=== PATIENT | female | born 1980 | race Hispanic/Latino ===

== ENCOUNTER 2023-12-07 20:03 | Emergency (ER) | payer OTHER, SELFPAY ==
[2023-12-07 20:05] VITALS: BP 149/90
[2023-12-07 20:23] LABS: % Basophils 0.4 % (0-2); % Eosinophils 1.2 % (0-6); % Immature Granulocytes 0.3 % (0-0.5); % Lymphocytes 32.4 % (20.5-51.1); % Monocytes 5.8 % (1.7-9.3); % Neutrophils 59.9 % (42.2-75.2); Absolute Basophils 0.1 10^3/uL (0-0.2); Absolute Eosinophils 0.2 10^3/uL (0-0.7); Absolute Lymphocytes 4.5 10^3/uL (1.2-3.4); Absolute Monocytes 0.8 10^3/uL (0.1-0.6); Absolute Neutrophils 8.3 10^3/uL (1.4-6.5); Hematocrit 36.1 % (37.0-47.0); Hemoglobin 12.8 g/dL (12.0-16.0); Mean Corp Hgb Conc. 35.5 g/dL (33.0-37.0); Mean Corpuscular Hgb 29.5 pg (27.0-31.0); Mean Corpuscular Volume 83.2 fL (81.0-99.0); Mean Platelet Volume 9.5 fL (7.4-10.4); Nucleated Red Blood Cells % 0 %; Platelet Count 349 10^3/uL (130-400); Red Blood Cell Count 4.34 10^6/uL (4.20-5.40); Red Cell Dist. Width 13.2 % (11.5-14.5); White Blood Cell Count 13.8 10^3/uL (4.8-10.8)
[2023-12-07 20:34] LABS: ALT (SGPT) 24 U/L (0-35); AST (SGOT) 20 U/L (14-36); Albumin 3.7 g/dl (3.5-5.0); Alkaline Phosphatase 93 U/L (38-126); Blood Urea Nitrogen 10 mg/dl (7-17); Calcium 9.1 mg/dl (8.4-10.2); Carbon Dioxide 23 mmol/L (22-30); Chloride 107 mmol/L (98-107); Glucose 99 mg/dl (70-99); Lactic Acid 1.1 mmol/L (0.7-2.0); Potassium 3.8 mmol/L (3.5-5.1); Sodium 137 mmol/L (135-145); Total Bilirubin 0.5 mg/dl (0.2-1.3); Total Protein 7.2 g/dl (6.3-8.2); eGFR > 60.00
[2023-12-07 20:37] LABS: Urine Albumin Trace (Neg - Trace); Urine Bilirubin Negative (Negative); Urine Character Clear (Clear); Urine Color Yellow; Urine Glucose Negative (Negative); Urine Ketone Negative (Negative); Urine Leukocyte Negative (Negative); Urine Nitrite Negative (Negative); Urine Occult Blood Negative (Negative); Urine Urobilinogen Negative (Neg - 1+)
[2023-12-07 20:49] LABS: Lipase 64 U/L (23-300)
--- NOTE | 2023-12-07 22:41 | ED.GENMED ---
History of Present Illness
General
Chief Complaint: Flank Pain
Source: patient
Exam Limitations: none
Time Seen by Provider: 12/07/23 22:15
Travel History
Have you had any contact with someone who has COVID-19?: No
Do you have any symptoms of coronavirus? Fever > 100 degrees, chills, cough, shortness of breath, sore throat, loss of taste or smell, muscle aches, or headache?: No
History of Present Illness
History of Present Illness:
This is a 43 year old female that comes in with c/o right sided back pain. States that this morning when she was in the shower she had right sided pain. States that this pain continued all day when she was at work. States that she tried Tylenol at
11am but nothing helped. Denies any fever, chills, chest pain, SOB, abd pain, nausea, vomiting, diarrhea, headache, dizziness, urinary burning.
Past History
Past History
ED Past Medical History: Arrthythmia (Atrial fibrillation, during her only in 2004, none since), CHF, GERD, NIDDM and Psychiatric (Anxiety)
ED Past Surgical History: Cardiac (pacemaker), (X2), Gynecological (tubal) and Other (Deviated septum)
Patient has exhibited threatening behavior?: No
PSI?: No
Social History
Tobacco: Former smoker
Alcohol: None
Drug: None
Personal:
Living: with family
Employment: Employed (Nurses aide)
Family History
Family History: Other
Review of Systems
Review of Systems
All Other Systems: ROS reviewed and negative except as documented in HPI and ROS
Constitutional: Reports no symptoms; Denies fever or chills
EENT: Reports no symptoms
Respiratory: Reports no symptoms; Denies cough or trouble breathing
Cardiac: Reports no symptoms; Denies chest pain
ABD/GI: Reports no symptoms; Denies abdominal pain, nausea, vomiting or diarrhea
: Reports no symptoms; Denies dysuria, frequency or urgency
Musculoskeletal: Reports back pain (Right sided back pain)
Skin: Reports no symptoms
Neurological: Reports no symptoms; Denies dizzy or headache
Psychiatric: Reports no symptoms
Phy Exam
General Physical Exam
General Presentation: no apparent distress
General age: appears stated age
General Skin: warm and dry
General Habitus: obese
General Mental: alert
General Hydration: appears well hydrated
ENT Exam
ENT Exam: TM's normal, pharynx normal and neck supple
Eye Exam
Eye Exam: EOMI
Cardiovascular Exam
Cardiovascular Exam: regular rate/rhythm, no edema and normal peripheral pulses
Pulmonary Exam
Pulmonary Exam: lungs clear, no respiratory distress, no rales, chest non tender, no crackles, no rhonchi, no wheezing and no cough
Gastrointestinal Exam
Gastrointestinal Exam: normal bowel sounds, non tender, soft, no organomegaly, no pulsatile mass, non distended, no cva tenderness and other (Obese)
Musculoskeletal Exam
Musculoskeletal Exam: full ROM and no edema
Skin Exam
Skin Exam: normal color, warm/dry, no rash and no petechia
Psychiatric Exam
Psychiatric Exam: normal mood/affect
Course
Orders/Labs/Results
Orders:
Orders
12/07/23 20:12
CBC/With Diff [Complete Blood Count/With Diff] Urgent
CMP [Comprehensive Metabolic Panel] Urgent
HCG, Serum Qualitative Screen Urgent
Comment: ADD ON
Lactate Level [Lactic Acid] Urgent
Lipase Urgent
12/07/23 20:24
Urinalysis Reflex To Culture Urgent
Date Specimen was Collected: 12/07/23
Time Specimen was Collected: 20:08
12/07/23 22:41
Add On- LAB Urgent
Tests Added?: HCG
12/07/23 23:08
Acetaminophen [Tylenol] 1,000 mg PO NOW STA
12/08/23 00:15
CT Abd/pel Without Iv Or Oral Urgent
Reason For Exam: Right sided back pain/flank
Abnormal Lab Results
12/07/23
20:12
WBC 13.8 H 10^3/uL
(4.8-10.8)
Hct 36.1 L %
(37.0-47.0)
Absolute Neuts (auto) 8.3 H 10^3/uL
(1.4-6.5)
Absolute Lymphs (auto) 4.5 H 10^3/uL
(1.2-3.4)
Absolute Monos (auto) 0.8 H 10^3/uL
(0.1-0.6)
Creatinine 0.5 L mg/dL
(0.6-1.0)
12/07/23 20:12
12/07/23 20:12
Leukocytosis, Lactic acid normal at 1.1, Lipase normal at 64, Urine negative for infection but blood noted, HCG negative
Vital Signs
Initial and Last Documented VS:
Initial Vital Signs
Temp Pulse Resp BP Pulse Ox
98.3 F 89 18 149/90 98
12/07/23 20:05 12/07/23 20:05 12/07/23 20:05 12/07/23 20:05 12/07/23 20:05
Last Documented Vital Signs
Temp Pulse Resp BP Pulse Ox
98.3 F 89 18 149/90 98
12/07/23 20:05 12/07/23 20:05 12/07/23 20:05 12/07/23 20:05 12/07/23 20:05
MDM/Problems Addressed
Differential Diagnosis Includes:
Renal calculus, Back pain
MDM/Problems Addressed:
This is a 43 year old female that comes in with c/o right sided back pain. States that this pain started this morning and has continued all day.
Will get labs and CT scan.
Back over to see patient. Explained that she has stones in both kidneys but they are not in the ureter. Patient encouraged to increased her water intake to 8-8oz glasses daily. Tylenol for pain. Follow up with the family doctor. Return with any
concerns.
Chronic conditions affecting care:
NA
Acute Exacerbation and/or Progression of Chronic Illness:
NA
*Radiology
Radiology exam reviewed: radiology read reviewed (CT night hawk- Bilateral renal calculi. NO evidence of obstructing ureteral calculus. Noninflamed appendix. Additional findings: Partially imaged pacemaker, DJD)
*Pulse Oximetry
Patient hypoxic: no
*EKG
Interpreted by ED Provider?: NA
Rate: EKG- N/A
*Furniture Painter Interpretation
Rate: Furniture Painter- N/A
*Critical Care Note
Total Time (30-74mins, 75-104mins- exclusive of procedures): Not Applicable
ED Attending Note
-
Portions of this chart may have been created with voice recognition software.� Occasional wrong word or��sound alike� substitutions may have occurred due to the inherent limitations of voice recognition software.
Discharge Plan
Departure
Patient Disposition: Home (Routine Discharge)
Date of Disposition: 12/08/23
Time of Disposition: 00:54
Patient with high blood pressure during this ER visit?: Yes
Condition: Good
Covid-19: Not Applicable
Discharge Problem:
Bilateral kidney stones
Instructions: Kidney Stones (DC), BLOOD PRESSURE
Prescriptions:
No Action
zolpidem 5 MG tablet
5 mg PO HS
albuterol sulfate [Proventil HFA] 90 MCG/PUFF HFA aerosol inhaler
2 puff inhalation Q4HPRN PRN (Reason: shortness of breath, cough) Qty: 1 0RF
ergocalciferol (vitamin D2) [Drisdol] 1,250 mcg (50,000 unit) Capsule
1,250 mcg PO TU
acetaminophen 325 mg Tablet
650 mg PO Q4HPRN PRN (Reason: MILD PAIN) Qty: 30 0RF
diltiazem HCl 240 mg Capsule,Extended Release 24hr
240 mg PO DAILY Qty: 30 0RF
Eliquis 5 mg Tablet
5 mg PO BID Qty: 30 0RF
furosemide [Lasix] 40 mg tablet
40 mg PO DAILY PRN (Reason: weight gain) Qty: 30 0RF
potassium chloride 20 mEq tablet extended release
20 meq PO DAILY PRN (Reason: when you take lasix) Qty: 30 0RF
metformin 500 mg tablet
500 mg PO BID@0800,1700
omeprazole 40 mg Capsule,Delayed Release(Dr/Ec)
40 mg PO DAILY PRN (Reason: reflux)
alprazolam 0.5 mg tablet
0.5 mg PO HSPRN PRN (Reason: anxiety)
olopatadine 0.1 % drops
1 drp BOTH EYES BIDPRN PRN (Reason: allergies)
ibuprofen [Advil] 200 mg Tablet
800 mg PO BIDPRN PRN (Reason: mild pain)
medroxyprogesterone 150 mg/mL syringe
15 mg IM .Q13 WEEKS
magnesium oxide 400 mg magnesium Tablet
400 mg PO DAILY
insulin glargine [Lantus Solostar U-100 Insulin] 100 unit/mL (3 mL) insulin pen
10 unit SC DAILY PRN (Reason: bs>130)
doxycycline hyclate 100 mg Capsule
100 mg PO Q12 Qty: 14 0RF
metronidazole 500 mg tablet
500 mg PO Q8H 5 Days Qty: 15 0RF
Referrals:
Sakina Peraza CRNP [Family Provider] - Call in 1-3 days for appt
Activity Restrictions/Additional Instructions:
As discussed, your blood work shows that your WBC are slightly elevated. Your CT shows that you have stones in the kidneys but not in the ureters. Please increase your water intake to 8-8oz glasses daily. Your urine is negative for any infection.
Follow up with the family doctor for recheck as needed. You may use Tylenol as needed for any pain. IF YOU HAVE FEVER, VOMITING, INCREASED OR CHANGING PAIN, OR YOU HAVE ANY OTHER CONCERNS PLEASE RETURN TO THE EMERGENCY ROOM.
Interventions
Interventions:
DU-Soryht-Mogpfwhopn Assessment Last Done: 12/07/23 23:25
Discharge Date and Time
Print Language: CAMBODIAN
[2023-12-07 23:08] LABS: HCG, Serum Qualitative Screen Negative
[2023-12-07] MEDS: TYLENOL 1000 MG PO (23:19)
== END 2023-12-08 01:07 | disposition home or self-care (01) ==
LOC: EMR 20:03
PROVIDERS: Emergency Medicine; EMERGENCY PHYSICIAN Student in an Organized Health Care Education/Training Program; FAMILY PHYSICIAN Nurse Practitioner Family
DX: N20.0 Calculus of kidney (principal); Z87.891 Personal history of nicotine dependence
CPT/HCPCS: 99284; 74176; 80053; 81003; 83605; 83690; 84703; 85025

== ENCOUNTER 2024-04-25 00:04 | Emergency (ER) | payer OTHER, SELFPAY ==
[2024-04-25 00:08] VITALS: BP 128/73
[2024-04-25 00:26] LABS: Urine Albumin Negative (Neg - Trace); Urine Bilirubin Negative (Negative); Urine Character Clear (Clear); Urine Color Yellow; Urine Glucose Negative (Negative); Urine Ketone Negative (Negative); Urine Leukocyte Trace (Negative); Urine Nitrite Negative (Negative); Urine Occult Blood Negative (Negative); Urine Specific Gravity 1.015 (<1.030); Urine Urobilinogen Negative (Neg - 1+); Urine pH 6.5 (5.0-9.0)
[2024-04-25 01:09] LABS: Urine Squamous Cell >30 /LPF (Few)
[2024-04-25 01:11] LABS: Urine Amorphous Seen; Urine Red Blood Cell 0-2 /HPF (0-2)
[2024-04-25 01:12] LABS: Urine Bacteria Moderate (Negative)
--- NOTE | 2024-04-25 02:36 | ED.GENMED ---
History of Present Illness
General
Chief Complaint: Flank Pain
Source: patient, records and previous radiology exam
Exam Limitations: none
Time Seen by Provider: 04/25/24 02:19
Nursing documentation reviewed up to this point in time: agreed with except (Patient denies anterior abdominal pain to me)
History of Present Illness
History of Present Illness:
44-year-old female A-fib on Eliquis, prior kidney stone presents with right flank pain, different than her prior kidney stone worse with movement better with rest mild nausea without vomiting took some ibuprofen PCP says she should not take it
because of her blood thinner then had some Tylenol no heavy lifting no shortness of breath patient denies dysuria frequency or urgency
Past History
Past History
ED Past Medical History: Arrthythmia (Atrial fibrillation, during her only in 2004, none since), CHF, GERD, NIDDM and Psychiatric (Anxiety)
ED Past Surgical History: Cardiac (pacemaker), (X2), Gynecological (tubal) and Other (Deviated septum)
Patient has exhibited threatening behavior?: No
PSI?: No
Social History
Tobacco: Former smoker
Alcohol: None
Drug: None
Personal:
Living: with family
Employment: Employed (Nurses aide)
Family History
Family History: Other
Review of Systems
Review of Systems
All Other Systems: Not applicable
Constitutional: Reports fever (Low-grade)
EENT: Reports no symptoms
Respiratory: Reports no symptoms; Denies cough or trouble breathing
Cardiac: Reports no symptoms
ABD/GI: Reports abdominal pain (Correction from the nurses note) and nausea
Phy Exam
Physical Exam
Physical Exam:
Physical Exam
General: no apparent distress, not acutely ill
Neck: No jaundice
Heart: Rate
Lungs: no acute respiratory distress. clear bilaterally
Abdomen: Soft nontender no CVA tenderness reproducible tenderness with no rash in the right paraspinal tenderness mid thoracic spine
Neuro: alert and oriented. no focal neurological deficits
Skin: no rash
Psychiatric: well kept. interactive and cooperative
Extremities: no edema.
Course
Orders/Labs/Results
Orders:
Orders
04/25/24 00:14
HCG, Urine Qualitative Screen Urgent
Date Specimen was Collected: 04/25/24
Time Specimen was Collected: 00:14
Comment: ADDED
Urinalysis Reflex To Culture Urgent
Date Specimen was Collected: 04/25/24
Time Specimen was Collected: 00:14
Urine Microscopic Reflex Cult Urgent
Urine Culture Urgent
LUCIANO Source: U
Specimen Description:
Date Specimen was Collected: 04/25/24
Time Specimen was Collected: 00:14
04/25/24 02:20
Add On- LAB Urgent
Tests Added?: urine hcg, urine culture
04/25/24 02:35
Oxycodone/Acetaminophen [Percocet 5/325] 1 tablet PO NOW STA
Abnormal Lab Results
04/25/24
00:14
Leukocyte Esterase Rfl Trace A
(Negative)
Urine Bacteria (Reflex) Moderate A
(Negative)
Vital Signs
Initial and Last Documented VS:
Initial Vital Signs
Temp Pulse Resp BP Pulse Ox
98.3 F 86 21 128/73 98
04/25/24 00:08 04/25/24 00:08 04/25/24 00:08 04/25/24 00:08 04/25/24 00:08
Last Documented Vital Signs
Temp Pulse Resp BP Pulse Ox
98.3 F 86 21 128/73 98
04/25/24 00:08 04/25/24 00:08 04/25/24 00:08 04/25/24 00:08 04/25/24 00:08
MDM/Problems Addressed
Differential Diagnosis Includes:
Strain strain, UTI, renal colic pleurisy doubt PE she is anticoagulated
MDM/Problems Addressed:
Right flank pain
Chronic conditions affecting care:
A-fib kidney stone diabetes
Acute Exacerbation and/or Progression of Chronic Illness:
A-fib kidney stone diet
*Pulse Oximetry
Patient hypoxic: no
*Critical Care Note
Total Time (30-74mins, 75-104mins- exclusive of procedures): Not Applicable
Data Reviewed
Source: patient
Update Note
Update Note:
Patient is nontoxic, urinalysis noted looks like contaminated specimen, symptoms appear positional, different than her prior kidney stone, no dysuria or frequency,
Will hold on imaging she has had numerous CAT scans previously, she states this is different than her prior ureteral stones, patient clearly instructed to return to the ER if worsening symptoms
ED Attending Note
-
Portions of this chart may have been created with voice recognition software.� Occasional wrong word or��sound alike� substitutions may have occurred due to the inherent limitations of voice recognition software.
Discharge Plan
Departure
Patient Disposition: Home (Routine Discharge)
Date of Disposition: 04/25/24
Time of Disposition: 02:39
Patient with high blood pressure during this ER visit?: No
Condition: Good
Covid-19: Not Applicable
Discharge Problem:
Back pain
Instructions: Flank Pain (DC)
Prescriptions:
No Action
zolpidem 5 MG tablet
5 mg PO HS
albuterol sulfate [Proventil HFA] 90 MCG/PUFF HFA aerosol inhaler
2 puff inhalation Q4HPRN PRN (Reason: shortness of breath, cough) Qty: 1 0RF
ergocalciferol (vitamin D2) [Drisdol] 1,250 mcg (50,000 unit) Capsule
1,250 mcg PO TU
acetaminophen 325 mg Tablet
650 mg PO Q4HPRN PRN (Reason: MILD PAIN) Qty: 30 0RF
diltiazem HCl 240 mg Capsule,Extended Release 24hr
240 mg PO DAILY Qty: 30 0RF
Eliquis 5 mg Tablet
5 mg PO BID Qty: 30 0RF
furosemide [Lasix] 40 mg tablet
40 mg PO DAILY PRN (Reason: weight gain) Qty: 30 0RF
potassium chloride 20 mEq tablet extended release
20 meq PO DAILY PRN (Reason: when you take lasix) Qty: 30 0RF
metformin 500 mg tablet
500 mg PO BID@0800,1700
omeprazole 40 mg Capsule,Delayed Release(Dr/Ec)
40 mg PO DAILY PRN (Reason: reflux)
alprazolam 0.5 mg tablet
0.5 mg PO HSPRN PRN (Reason: anxiety)
olopatadine 0.1 % drops
1 drp BOTH EYES BIDPRN PRN (Reason: allergies)
ibuprofen [Advil] 200 mg Tablet
800 mg PO BIDPRN PRN (Reason: mild pain)
medroxyprogesterone 150 mg/mL syringe
15 mg IM .Q13 WEEKS
magnesium oxide 400 mg magnesium Tablet
400 mg PO DAILY
insulin glargine [Lantus Solostar U-100 Insulin] 100 unit/mL (3 mL) insulin pen
10 unit SC DAILY PRN (Reason: bs>130)
doxycycline hyclate 100 mg Capsule
100 mg PO Q12 Qty: 14 0RF
metronidazole 500 mg tablet
500 mg PO Q8H 5 Days Qty: 15 0RF
Activity Restrictions/Additional Instructions:
Drink plenty of fluids, Tylenol every 4-6 hours as needed for pain
Return to the ER if fevers, worsening flank pain, nausea vomiting or any other concerns
Interventions
Interventions:
*Risk Screen - Suicide Last Done: 04/25/24 00:08
*General Assessment Last Done: 04/25/24 02:09
*Neglect/Abuse Screening Last Done: 04/25/24 02:09
ED- Fall Risk Assessment Last Done: 04/25/24 02:09
*ED COVID-19 Vaccine History Last Done: 04/25/24 02:09
GU-Utbxzw-Djeysznjvy Assessment Last Done: 04/25/24 02:09
ED-Female Genitourinary Assessment Last Done: 04/25/24 02:09
Discharge Date and Time
Print Language: KISWAHILI
[2024-04-25 03:09] LABS: HCG, Urine Qualitative Screen Negative
[2024-04-25] MEDS: PERCOCET 5/325 1 TABLET PO (03:13)
[2024-04-25 03:20] VITALS: BP 138/82
== END 2024-04-25 03:30 | disposition home or self-care (01) ==
LOC: EMR 00:04
PROVIDERS: EMERGENCY PHYSICIAN Emergency Medicine; FAMILY PHYSICIAN Nurse Practitioner Family
DX: M54.9 Dorsalgia, unspecified (principal); I48.91 Unspecified atrial fibrillation; E11.9 Type 2 diabetes mellitus without complications; F41.9 Anxiety disorder, unspecified; I50.9 Heart failure, unspecified; K21.9 Gastro-esophageal reflux disease without esophagitis; Z79.01 Long term (current) use of anticoagulants; Z87.442 Personal history of urinary calculi; Z87.891 Personal history of nicotine dependence; Z95.0 Presence of cardiac pacemaker
CPT/HCPCS: 99282; 81003; 81015; 81025; 87086

== ENCOUNTER 2024-07-24 03:51 | Emergency (ER) | payer OTHER, SELFPAY ==
[2024-07-24 03:52] VITALS: BP 169/79
[2024-07-24 03:58] VITALS: BMI 45.3
[2024-07-24 04:01] VITALS: BP 145/73
[2024-07-24 04:10] LABS: COVID-19 Antigen Positive (Negative)
--- NOTE | 2024-07-24 05:33 | ED.GENMED ---
History of Present Illness
General
Chief Complaint: Cold/Flu/URI Symptoms
Source: patient
Time Seen by Provider: 07/24/24 05:03
History of Present Illness
History of Present Illness:
Pleasant 44-year-old female presents to the emergency department with bodyaches, sore throat and 'feeling sick '. She states that her symptoms began around Wednesday afternoon. 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
outbreak recently. Patient has had COVID in the past. She has not fully immunized. She states that she had bad reaction to the last immunization. Patient's parents called 911 because they were concerned about her body aches and pains. Patient
denies chest pain or shortness of breath. Does report some fever.
Past History
Past History
ED Past Medical History: Arrthythmia (Atrial fibrillation, during her only in 2004, none since), CHF, GERD, NIDDM and Psychiatric (Anxiety)
ED Past Surgical History: Cardiac (pacemaker), (X2), Gynecological (tubal) and Other (Deviated septum)
Patient has exhibited threatening behavior?: No
PSI?: No
Social History
Tobacco: Former smoker
Alcohol: None
Drug: None
Personal:
Living: with family
Employment: Employed (Nurses aide)
Family History
Family History: Other
Review of Systems
Review of Systems
Allergies reviewed?: Yes
All Other Systems: ROS reviewed and negative except as documented in HPI and ROS
Constitutional: Reports fever, fatigue and sleep disturbance
EENT: Reports no symptoms
Respiratory: Reports cough
Cardiac: Reports no symptoms
ABD/GI: Reports no symptoms
: Reports no symptoms
Musculoskeletal: Reports no symptoms
Skin: Reports no symptoms
Neurological: Reports no symptoms
Endocrine: Reports no symptoms
Hematologic/Lymphatic: Reports no symptoms
Psychiatric: Reports anxiety
Phy Exam
Physical Exam
Physical Exam:
Physical Exam
Vital signs and allergy list reviewed and agreed with.
GENERAL: Alert , in minimal to no apparent distress, obese
EYE: pupils equal, EOMI, anicteric
NECK: Supple, no significant adenopathy. No masses. Trachea midline
ENT: Oropharynx is clear, mmm.
CARDIAC: Regular rate and rhythm . No M/R/G
LUNGS: Clear breath sounds bilaterally, no acute respiratory distress, no wheezes/rales/rhonchi
ABDOMEN: Soft, without focal tenderness, no r/g, no cvat. Normal BSx4q
NEUROLOGICAL: Alert and oriented, no focal neuro deficits
SKIN: Warm and dry, skin intact.
MUSCULOSKELETAL: No edema, well perfused. Moves all 4 extremities
PSYCH: Normal and appropriate interaction.
Course
Orders/Labs/Results
Orders:
Orders
07/24/24 03:58
COVID-19 Antigen Urgent
Source: Nasal Swab
Influenza A+B Rapid Molecular Urgent
LUCIANO Source: Nasal Swab
Specimen Description:
07/24/24 05:31
CR Chest - 2 Views Urgent
Comment:
Reason For Exam: covid + cough
Abnormal Lab Results
07/24/24
03:58
SARS-CoV-2 Antigen Positive A
(Negative)
Vital Signs
Initial and Last Documented VS:
Initial Vital Signs
Temp Pulse Resp BP Pulse Ox
100.1 F 108 20 169/79 97
07/24/24 03:52 07/24/24 03:52 07/24/24 03:52 07/24/24 03:52 07/24/24 03:52
Last Documented Vital Signs
Temp Pulse Resp BP Pulse Ox
98.8 F 99 18 145/73 96
07/24/24 05:20 07/24/24 05:53 07/24/24 05:53 07/24/24 04:01 07/24/24 05:53
*Critical Care Note
Total Time (30-74mins, 75-104mins- exclusive of procedures): Not Applicable
ED Attending Note
-
Portions of this chart may have been created with voice recognition software.� Occasional wrong word or��sound alike� substitutions may have occurred due to the inherent limitations of voice recognition software.
Discharge Plan
Departure
Patient Disposition: Home (Routine Discharge)
Date of Disposition: 07/24/24
Time of Disposition: 06:04
Patient with high blood pressure during this ER visit?: Yes
Condition: Good
Discharge Problem:
COVID-19
Instructions: Fever, Adult (DC), Viral Syndrome (DC), Coronavirus Home Quarantine, BLOOD PRESSURE
Prescriptions:
No Action
zolpidem 5 MG tablet
5 mg PO HS
ergocalciferol (vitamin D2) [Drisdol] 1,250 mcg (50,000 unit) Capsule
1,250 mcg PO TU
diltiazem HCl 240 mg Capsule,Extended Release 24hr
240 mg PO DAILY Qty: 30 0RF
Eliquis 5 mg Tablet
5 mg PO BID Qty: 30 0RF
furosemide [Lasix] 40 mg tablet
40 mg PO DAILY PRN (Reason: weight gain) Qty: 30 0RF
potassium chloride 20 mEq tablet extended release
20 meq PO DAILY PRN (Reason: when you take lasix) Qty: 30 0RF
metformin 500 mg tablet
500 mg PO BID@0800,1700
omeprazole 40 mg Capsule,Delayed Release(Dr/Ec)
40 mg PO DAILY PRN (Reason: reflux)
alprazolam 0.5 mg tablet
0.5 mg PO HSPRN PRN (Reason: anxiety)
olopatadine 0.1 % drops
1 drp BOTH EYES BIDPRN PRN (Reason: allergies)
medroxyprogesterone 150 mg/mL syringe
15 mg IM .Q13 WEEKS
magnesium oxide 400 mg magnesium Tablet
400 mg PO DAILY
insulin glargine [Lantus Solostar U-100 Insulin] 100 unit/mL (3 mL) insulin pen
10 unit SC DAILY PRN (Reason: bs>130)
Referrals:
Sakina Peraza CRNP [Family Provider] -
Stand Alone Forms: Return to Work
Activity Restrictions/Additional Instructions:
It was a pleasure meeting you and taking part in your care. We hope for your continued healing and wellness.
Please read discharge instructions in their entirety. However, they are for general education and may not describe your exact diagnosis at discharge. Information on your ER visit and medical conditions were discussed with you along with appropriate
follow up information...
If indicated, please take your medications as instructed and indicated on discharge paperwork.
Please schedule a follow up appointment as directed. Call to schedule an appointment
Please return to the emergency department with ANY change in, persisting, or worsening of symptoms. If any of your symptoms do not improve, or persist, or become more severe within 6-12 hours, please return to the emergency department for further
care.
Please return to the emergency department if you develop a headache, neck pain/stiffness, fever greater than 100.4F, chest pain, shortness of breath, persistent nausea, vomiting, slurred speech, difficulty walking, numbness/tingling, weakness, signs
of infection or any other symptoms that are worrisome to you.
If you have any questions or concerns please do not hesitate to call the Hospital at or E-mail me directly at [email or web address]
Interventions
Interventions:
*Risk Screen - Suicide Last Done: 07/24/24 03:52
*General Assessment Last Done: 07/24/24 03:52
*Neglect/Abuse Screening Last Done: 07/24/24 03:52
*ED COVID-19 Vaccine History Last Done: 07/24/24 03:58
*Nursing Disposition Last Done: 07/24/24 06:25
ED- Pulmonary Assessment Last Done: 07/24/24 04:07
Discharge Date and Time
Discharge Date/Time: 07/24/24 06:25
Print Language: FRENCH
== END 2024-07-24 06:25 | disposition home or self-care (01) ==
LOC: EMR 03:51
PROVIDERS: EMERGENCY PHYSICIAN Student in an Organized Health Care Education/Training Program; FAMILY PHYSICIAN Nurse Practitioner Family
DX: U07.1 COVID-19 (principal); I48.91 Unspecified atrial fibrillation; I50.9 Heart failure, unspecified; E11.9 Type 2 diabetes mellitus without complications; F41.9 Anxiety disorder, unspecified; K21.9 Gastro-esophageal reflux disease without esophagitis; Z87.891 Personal history of nicotine dependence; Z95.0 Presence of cardiac pacemaker
CPT/HCPCS: 99283; 71046; 87502; 87811

== ENCOUNTER 2025-05-07 04:59 | Emergency (ER) | payer OTHER, SELFPAY ==
[2025-05-07 05:08] VITALS: BP 193/100
--- NOTE | 2025-05-07 07:19 | ED.GENMED ---
History of Present Illness
General
Chief Complaint: Flank Pain
Source: patient
Time Seen by Provider: 05/07/25 06:56
History of Present Illness
History of Present Illness:
45-year-old female with past medical history of atrial fibrillation, CHF, insulin-dependent diabetes presenting to the ED for evaluation of a sudden onset left flank pain that developed around 2 AM, awoke patient from sleep accompanied with nausea
but no vomiting. Symptoms are described to be waxing and waning in nature, currently more mild but not resolved. Patient notes that she started with her menstrual period yesterday which had some increased cramping and a heavier flow but she notes
that the flow is not atypical for her. No history of ovarian cysts. She does note a history of kidney stones but states that this pain feels a little bit different because she is not having any discomfort with urination. No fevers, chills, rigors
or any other concerns presently. Patient did not take anything for her symptoms prior to arrival. She does note she is on Eliquis due to her history of A-fib.
Past History
Past History
ED Past Medical History: Arrthythmia (Atrial fibrillation, during her only in 2004, none since), CHF, GERD, NIDDM and Psychiatric (Anxiety)
ED Past Surgical History: Cardiac (pacemaker), (X2), Gynecological (tubal) and Other (Deviated septum)
Patient has exhibited threatening behavior?: No
PSI?: No
Social History
Tobacco: Former smoker
Alcohol: None
Drug: None
Personal:
Living: with family
Employment: Employed (Nurses aide)
Family History
Family History: Other
Review of Systems
Review of Systems
All Other Systems: ROS reviewed and negative except as documented in HPI and ROS
Phy Exam
Physical Exam
Physical Exam:
GENERAL: Alert , in no apparent distress but does appear uncomfortable, overweight
HEAD: Normocephalic atraumatic
EYE: clear conjunctiva
NECK: Supple
ENT: o/p clr, mmm.
CARDIAC: Regular rate and rhythm .
LUNGS: Clear breath sounds bilaterally, no acute respiratory distress, no wheezes/rales/rhonchi
ABDOMEN: Soft, without focal tenderness, no r/g, left CVAT
NEUROLOGICAL: Alert and oriented
SKIN: Warm and dry, skin intact.
MUSCULOSKELETAL: well perfused.
PSYCH: Normal and appropriate interaction.
Scores
Heart Failure Risk
Heart Failure Risk Score: Not Applicable
Heart Score for Chest Pain Patients
STEMI patient?: Not applicable
Withdrawal Assessment of Alcohol
Withdrawal Assessment Completed?: Not applicable
Course
Orders/Labs/Results
Orders:
Orders
05/07/25 07:09
0.9% Sodium Chloride 1000 ml [Nss] 1,000 ml IV BOLUS
Morphine Sulfate 4 mg IV NOW STA
Ondansetron Injectable [Zofran] 4 mg IV NOW STA
05/07/25 07:10
CT Abd/pel Without Iv Or Oral Urgent
Comment:
Reason For Exam: sudden left flank pain
Test Result ONCE
05/07/25 07:43
Complete Blood Count/With Diff Urgent
Comprehensive Metabolic Panel Urgent
HCG, Serum Qualitative Screen Urgent
Lipase Urgent
05/07/25 08:04
Urinalysis Reflex To Culture Urgent
Date Specimen was Collected: 05/07/25
Time Specimen was Collected: 08:02
Urine Microscopic Reflex Cult Urgent
Urine Culture Urgent
LUCIANO Source: U
Specimen Description:
Date Specimen was Collected: 05/07/25
Time Specimen was Collected: 08:02
05/07/25 10:01
CefTRIAXone [Rocephin] 1,000 mg IV NOW STA
05/07/25 10:07
Morphine Sulfate 2 mg IV NOW STA
Abnormal Lab Results
05/07/25 05/07/25
07:43 08:04
WBC 14.2 H 10^3/uL
(4.8-10.8)
Abs Immat Gran (auto) 0.1 H 10^3/uL
(0-0.05)
Absolute Neuts (auto) 10.7 H 10^3/uL
(1.4-6.5)
Absolute Monos (auto) 0.9 H 10^3/uL
(0.1-0.6)
Neutrophils % 75.4 H %
(42.2-75.2)
Lymphocytes % 16.6 L %
(20.5-51.1)
Creatinine 0.4 L mg/dL
(0.6-1.0)
Ur Occult Blood Reflex 4+ A
(Negative)
Urine Nitrite (Reflex) Positive A
(Negative)
Leukocyte Esterase Rfl 2+ A
(Negative)
Urine RBC >100 A /HPF
(0-2)
Urine Bacteria (Reflex) Few A
(Negative)
Urine Albumin (Reflex) 3+ A
(Neg - Trace)
05/07/25 07:43
05/07/25 07:43
Vital Signs
Initial and Last Documented VS:
Initial Vital Signs
Temp Pulse Resp BP Pulse Ox
97.7 F 78 20 193/100 98
05/07/25 05:08 05/07/25 05:08 05/07/25 05:08 05/07/25 05:08 05/07/25 05:08
Last Documented Vital Signs
Temp Pulse Resp BP Pulse Ox
97.7 F 98 16 138/81 98
05/07/25 05:08 05/07/25 10:00 05/07/25 10:00 05/07/25 10:00 05/07/25 10:00
MDM/Problems Addressed
Differential Diagnosis Includes:
Renal/Ureteral Colic
Ovarian cyst/Ovarian torsion
Muscular back pain
Dissection
UTI/Pyelo
Less concern for atypical ACS
Diverticulitis/colitis
MDM/Problems Addressed:
45-year-old female presenting to the ER for evaluation of sudden left flank pain that developed around 2 AM, waxing and waning but overall a constant discomfort. Did not take anything for the pain prior to arrival. No fevers. In no acute distress
but does appear uncomfortable. Will treat pain with morphine, nausea with Zofran and IV fluids. Unfortunately unable to treat with Toradol given patient is already anticoagulated on Eliquis. I do suspect renal/ureteral colic is the most likely
diagnosis given the description of the pain as well as the location. Will have low threshold to order ultrasound to evaluate for possible ovarian pathology if CT is unremarkable.
*Radiology
Radiology exam reviewed: radiology read reviewed
*Pulse Oximetry
SaO2: 98
Oxygen Mode of Delivery: Room air
Patient hypoxic: no
*Critical Care Note
Total Time (30-74mins, 75-104mins- exclusive of procedures): Not Applicable
Patient Management
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
Escalation/DeEscalation of care consider admission/obs:
Patient CT scan shows hydronephrosis but a likely recently passed kidney stone that is still within the posterior portion of the bladder. Given her leukocytosis and nitrite positive urine I did discuss the case with urology who is in agreement with
plan for 1 dose of IV Rocephin here and oral cefuroxime tablet for home. Will treat pain with continued p.o. Tylenol and Flomax. Patient will follow-up with urology as an outpatient. Aware of return precautions to the ER.
ED Attending Note
-
Portions of this chart may have been created with voice recognition software.� Occasional wrong word or��sound alike� substitutions may have occurred due to the inherent limitations of voice recognition software.
Discharge Plan
Departure
Patient Disposition: Home (Routine Discharge)
Date of Disposition: 05/07/25
Time of Disposition: 10:28
Patient with high blood pressure during this ER visit?: Yes
Discharge Problem:
Ureteral colic, UTI (urinary tract infection)
Instructions: Kidney Stones (DC)
Prescriptions:
New
cefuroxime axetil 500 mg tablet
500 mg PO BID 7 Days Qty: 14 0RF
ondansetron 4 mg tablet,disintegrating
4 mg PO TIDPRN PRN (Reason: nausea/vomiting) Qty: 10 0RF
tamsulosin [Flomax] 0.4 mg capsule
0.4 mg PO DAILY Qty: 10 0RF
No Action
zolpidem 5 MG tablet
5 mg PO HS
ergocalciferol (vitamin D2) [Drisdol] 1,250 mcg (50,000 unit) Capsule
1,250 mcg PO TU
diltiazem HCl 240 mg Capsule,Extended Release 24hr
240 mg PO DAILY Qty: 30 0RF
Eliquis 5 mg Tablet
5 mg PO BID Qty: 30 0RF
furosemide [Lasix] 40 mg tablet
40 mg PO DAILY PRN (Reason: weight gain) Qty: 30 0RF
potassium chloride 20 mEq tablet extended release
20 meq PO DAILY PRN (Reason: when you take lasix) Qty: 30 0RF
metformin 500 mg tablet
500 mg PO BID@0800,1700
omeprazole 40 mg Capsule,Delayed Release(Dr/Ec)
40 mg PO DAILY PRN (Reason: reflux)
alprazolam 0.5 mg tablet
0.5 mg PO HSPRN PRN (Reason: anxiety)
olopatadine 0.1 % drops
1 drp BOTH EYES BIDPRN PRN (Reason: allergies)
medroxyprogesterone 150 mg/mL syringe
15 mg IM .Q13 WEEKS
magnesium oxide 400 mg magnesium Tablet
400 mg PO DAILY
insulin glargine [Lantus Solostar U-100 Insulin] 100 unit/mL (3 mL) insulin pen
10 unit SC DAILY PRN (Reason: bs>130)
Referrals:
Ulices Echevarria MD [Active, Urology]
Sakina Peraza CRNP [Family Provider, Family Practice]
Stand Alone Forms: Return to Work
Interventions
Interventions:
*Risk Screen - Suicide Last Done: 05/07/25 05:08
*General Assessment Last Done: 05/07/25 07:58
*Neglect/Abuse Screening Last Done: 05/07/25 05:08
*ED- Fall Risk Assessment Last Done: 05/07/25 07:58
*ED COVID-19 Vaccine History Last Done: 05/07/25 07:58
*ED Influenza Vaccine History Last Done: 05/07/25 07:58
QA-Xjreff-Xyjamhokgf Assessment Last Done: 05/07/25 07:58
ED-Female Genitourinary Assessment Last Done: 05/07/25 07:58
Discharge Date and Time
Print Language: CONGOLESE
[2025-05-07] MEDS: NSS 1000 IV (07:44)
[2025-05-07] MEDS: ZOFRAN 4 MG IV (07:49)
[2025-05-07] MEDS: MORPHINE SULFATE 4 MG IV (07:50)
[2025-05-07 07:58] VITALS: BP 146/91; BMI 42.9
[2025-05-07 08:00] VITALS: BP 144/95
[2025-05-07 08:03] LABS: Hematocrit 37.8 % (37.0-47.0); Hemoglobin 13.0 g/dL (12.0-16.0); Mean Corp Hgb Conc. 34.4 g/dL (33.0-37.0); Mean Corpuscular Volume 85.1 fL (81.0-99.0); Nucleated Red Blood Cells % 0 %; Platelet Count 323 10^3/uL (130-400); Red Cell Dist. Width 12.8 % (11.5-14.5)
[2025-05-07 08:14] LABS: Urine Character Cloudy (Clear)
[2025-05-07 08:18] LABS: HCG, Serum Qualitative Screen Negative
[2025-05-07 08:22] LABS: ALT (SGPT) 26 U/L (0-35); AST (SGOT) 19 U/L (14-36); Albumin 4.3 g/dl (3.5-5.0); Alkaline Phosphatase 74 U/L (38-126); Blood Urea Nitrogen 10 mg/dl (7-17); Calcium 9.7 mg/dl (8.4-10.2); Carbon Dioxide 24 mmol/L (22-30); Chloride 107 mmol/L (98-107); Estimated Creatinine Clearance > 125 ml/min; Glucose 97 mg/dl (70-99); Lipase 46 U/L (23-300); Potassium 3.7 mmol/L (3.5-5.1); Sodium 137 mmol/L (135-145); Total Protein 8.0 g/dl (6.3-8.2); eGFR > 60.00
[2025-05-07 08:26] LABS: Urine Red Blood Cell >100 /HPF (0-2); Urine Squamous Cell 0-2 /LPF (Few)
[2025-05-07 08:27] LABS: Urine White Cell 0-2 /HPF (0-5)
[2025-05-07 09:00] VITALS: BP 138/87
[2025-05-07 10:00] VITALS: BP 138/81
--- NOTE | 2025-05-07 10:00 | EDRN ---
Rodney Miner PA in to see pt.
[2025-05-07] MEDS: ROCEPHIN 1000 MG IV (10:17)
[2025-05-07] MEDS: MORPHINE SULFATE 2 MG IV (10:18)
== END 2025-05-07 10:40 | disposition home or self-care (01) ==
LOC: EMR 04:59
PROVIDERS: Physician Assistant Medical; EMERGENCY PHYSICIAN Emergency Medicine; FAMILY PHYSICIAN Nurse Practitioner Family
DX: N23 Unspecified renal colic (principal); N13.30 Unspecified hydronephrosis; E10.9 Type 1 diabetes mellitus without complications; I48.91 Unspecified atrial fibrillation; I50.9 Heart failure, unspecified; K21.9 Gastro-esophageal reflux disease without esophagitis; F41.9 Anxiety disorder, unspecified; Z79.01 Long term (current) use of anticoagulants; Z79.4 Long term (current) use of insulin; Z79.84 Long term (current) use of oral hypoglycemic drugs; Z87.442 Personal history of urinary calculi; Z95.0 Presence of cardiac pacemaker; Z87.891 Personal history of nicotine dependence
CPT/HCPCS: 99284; 96374; 96375 ×2; 96376; 96361; 74176; 80053; 81003; 81015; 83690; 84703; 85025; 87086